=== PATIENT | male | born 1960 | race Caucasian/White ===

== ENCOUNTER 2025-04-14 23:21 | Emergency (ER) | payer MEDICARE, MEDICAID ==
[~2025-04-14] VITALS: Ht 185.4 cm; Wt 95.5 kg
[2025-04-14 23:33] VITALS: TEMP 97.9
[2025-04-15 00:44] LABS: CALCIUM, TOTAL 8.4 mg/dL (8.8-10.5); CREATININE 0.68 mg/dL (0.60-1.30); GLOMERULAR FILTR. RATE CALC > 60 mL/min (>60); GLUCOSE,RANDOM 102 mg/dL (70-110); PLATELET COUNT (AUTO) 67 K/uL (150-450); RED BLOOD CELL COUNT(AUTO) 4.26 MIL/uL (4.50-5.90); RED CELL DISTRIBUTION WIDTH 19.9 % (11.5-14.5); SODIUM SERUM 133 mmol/L (136-145); UREA NITROGEN, BLOOD 13 mg/dL (7-18); WHITE BLOOD COUNT (AUTO) 3.7 K/uL (4.5-11.0)
[2025-04-15 00:49] LABS: CREATINE KINASE, TOTAL ONLY 134 U/L (39-308)
[2025-04-15 00:55] LABS: TROPONIN I-HIGH SENSITIVITY 18 ng/L (<76)
[2025-04-15 00:56] LABS: COVID AG,FIA SOURCE NASAL SWAB
[2025-04-15 01:07] LABS: INFLUENZA TYPE A NEGATIVE FOR TYPE A (NEGATIVE); INFLUENZA TYPE B NEGATIVE FOR TYPE B (NEGATIVE); SARS-COV2 (COVID) ANTIGEN,FIA Negative (Negative)
[2025-04-15] MEDS ORDERED: SODIUM CHLORIDE 0.9% 100 ML ONE (01:36)
[2025-04-15] MEDS ORDERED: IOHEXOL 350 MG/ML 100 ML VIAL ONE (01:36)
[2025-04-15] MEDS: POTASSIUM CHLORIDE 20 MEQ ER TABLET PO ONE (01:40)
[2025-04-15 02:30] VITALS: BP 143/89; PULSE 102; RESP 19; O2SAT 96
[2025-04-15 03:01] LABS: APPEARANCE,URINE CLEAR (CLEAR); GLUCOSE, URINE (UA) NEGATIVE (NEGATIVE); LEUKOCYTE ESTERASE ,URINE NEGATIVE (NEGATIVE); NITRATE,URINE NEGATIVE (NEGATIVE); OCCULT BLOOD,URINE NEGATIVE (NEGATIVE); SPECIFIC GRAVITIY, URINE 1.041 (1.003-1.030)
[2025-04-15] MEDS ORDERED: POTA-364 PO (03:41)
== END 2025-04-15 04:00 | disposition home or self-care (01) ==
LOC: EMS 23:22
DX: E87.6 Hypokalemia (principal); I10 Essential (primary) hypertension; Z86.711 Personal history of pulmonary embolism; Z88.8 Allergy status to other drugs, medicaments and biological substances; Z20.822 Contact with and (suspected) exposure to COVID-19
CPT/HCPCS: 99285; 87426; 80048; 81003; 82550; 83880; 84484; 85025; 85379; 87040; 87804; 36415; 71275; 71045; 93005; Q9967; J7050

== ENCOUNTER → 2025-04-20 | Emergency (ER) | payer MEDICARE, MEDICAID ==
[~2025-04-20] VITALS: Ht 185.4 cm; Wt 95.5 kg
[~2025-04-20] MED LIST: POTA-364 PO
[2025-04-20 00:02] VITALS: TEMP 97.8
[2025-04-20 02:25] VITALS: BP 110/80; PULSE 86; RESP 18; O2SAT 100
== END | disposition still patient (30) ==
LOC: EMS
DX: S70.311A Abrasion, right thigh, initial encounter (principal); F10.129 Alcohol abuse with intoxication, unspecified; I10 Essential (primary) hypertension; Z79.01 Long term (current) use of anticoagulants; Z79.899 Other long term (current) drug therapy; Z88.8 Allergy status to other drugs, medicaments and biological substances; Z04.3 Encounter for examination and observation following other accident; Y90.9 Presence of alcohol in blood, level not specified; W19.XXXA Unspecified fall, initial encounter; Y93.89 Activity, other specified; Y92.89 Other specified places as the place of occurrence of the external cause; Y99.8 Other external cause status
CPT/HCPCS: 70450; 99284

== ENCOUNTER 2025-06-17 19:29 | Inpatient (IN) | payer MEDICARE, MEDICAID ==
[~2025-06-17] VITALS: Ht 185.4 cm; Wt 95.2 kg
[2025-06-17] MEDS: SODIUM CHLORIDE 0.9% 1,000 ML IV ONE (20:40)
[2025-06-17] MEDS: PANTOPRAZOLE SODIUM 40 MG/VIAL IVP ONE (20:41)
[2025-06-17 20:45] LABS: PLATELET COUNT (AUTO) 58 K/uL (150-450); RED BLOOD CELL COUNT(AUTO) 4.09 MIL/uL (4.50-5.90); RED CELL DISTRIBUTION WIDTH 18.4 % (11.5-14.5); WHITE BLOOD COUNT (AUTO) 3.9 K/uL (4.5-11.0)
[2025-06-17 20:48] LABS: CALCIUM, TOTAL 8.4 mg/dL (8.8-10.5); CREATININE 1.24 mg/dL (0.60-1.30); GLOMERULAR FILTR. RATE CALC 58 mL/min (>60); GLUCOSE,RANDOM 105 mg/dL (70-110); SODIUM SERUM 135 mmol/L (136-145); UREA NITROGEN, BLOOD 21 mg/dL (7-18)
[2025-06-17 20:52] LABS: ASPARTATE AMINOTRANSFERASE 62.0 U/L (15-37); TOTAL PROTEIN, SERUM 7.0 g/dL (6.4-8.2)
[2025-06-17 20:57] LABS: TROPONIN I-HIGH SENSITIVITY 14 ng/L (<76)
[2025-06-17] MEDS: PANTOPRAZOLE SODIUM 80 MG in SODIUM CHLORIDE 0.9% 100 ML IV SCH (21:17)
[2025-06-17] MEDS: PHYTONADIONE 5 MG in SODIUM CHLORIDE 0.9% 50 ML IV ONE (22:15)
[2025-06-17] MEDS: METOCLOPRAMIDE HCL 5 MG/ML 2 ML VIAL IVP ONE (22:24)
[2025-06-18] VITALS (9 sets, daily range): BP systolic 120–148; BP diastolic 81–100; PULSE 114–144; RESP 17–19; TEMP 98.1–99; O2SAT 98–100
[2025-06-18] MEDS ORDERED: MAGNESIUM HYDROXIDE SUSPENSION 30 ML UDCUP PO PRN (02:30)
[2025-06-18] MEDS ORDERED: 0.9% SODIUM CHLORIDE 10 ML SYRINGE IVP PRN (02:30)
[2025-06-18] MEDS ORDERED: OxyCODONE HCL/ACETAMINOPHEN 5-325 MG TABLET PO PRN (02:30)
[2025-06-18] MEDS ORDERED: ONDANSETRON HCL 4 MG/2 ML VIAL IVP PRN (02:30)
[2025-06-18] MEDS: OxyCODONE HCL/ACETAMINOPHEN 5-325 MG TABLET PO PRN (04:42)
[2025-06-18 06:22] LABS: PLATELET COUNT (AUTO) 57 K/uL (150-450); RED BLOOD CELL COUNT(AUTO) 3.69 MIL/uL (4.50-5.90); RED CELL DISTRIBUTION WIDTH 18.7 % (11.5-14.5); WHITE BLOOD COUNT (AUTO) 4.7 K/uL (4.5-11.0)
[2025-06-18 06:50] LABS: CALCIUM, TOTAL 8.4 mg/dL (8.8-10.5); CREATININE 1.26 mg/dL (0.60-1.30); GLOMERULAR FILTR. RATE CALC 57.0 mL/min (>60); GLUCOSE,RANDOM 141.0 mg/dL (70-110); SODIUM SERUM 137.0 mmol/L (136-145); UREA NITROGEN, BLOOD 35.0 mg/dL (7-18)
[2025-06-18] MEDS: PANTOPRAZOLE SODIUM 40 MG/VIAL IVP SCH (08:39)
[2025-06-18] MEDS: DOCUSATE SODIUM 100 MG CAPSULE PO SCH (09:00)
[2025-06-18] MEDS ORDERED: NALOXONE HCL 1 MG/ML 2 ML SYRINGE IVP PRN (10:45)
[2025-06-18] MEDS: 1: MAGNESIUM SULFATE 2 GM, MVI, ADULT NO.1 WITH VIT K 10 ML, THIAMINE 100 MG, FOLIC ACID IV SCH (11:43)
[2025-06-18] MEDS: PANTOPRAZOLE SODIUM 80 MG in SODIUM CHLORIDE 0.9% 100 ML IV SCH (11:44)
[2025-06-18] MEDS: LIDOCAINE 5% TRANSDERMAL PATCH TD SCH (11:44)
[2025-06-18] MEDS: HYDROCODONE/ACETAMINOPHEN 5-325 MG TABLET PO PRN (11:45)
[2025-06-18] MEDS: PANTOPRAZOLE SODIUM 40 MG/VIAL IVP ONE (11:47)
[2025-06-18] MEDS: MORPHINE SULFATE 4 MG/ML SYRINGE IVP PRN (18:59)
[2025-06-18] MEDS: -LIDODERM PATCH NOTE- MISC SCH (20:30)
[2025-06-19 00:14] VITALS: BP 136/83; PULSE 99; RESP 19; TEMP 98.2; O2SAT 99
[2025-06-19 04:07] VITALS: BP 146/91; PULSE 100; RESP 18; TEMP 97.7; O2SAT 100
[2025-06-19 06:45] LABS: CALCIUM, TOTAL 8.0 mg/dL (8.8-10.5); CREATININE 0.82 mg/dL (0.60-1.30); GLOMERULAR FILTR. RATE CALC > 60 mL/min (>60); GLUCOSE,RANDOM 96 mg/dL (70-110); SODIUM SERUM 135 mmol/L (136-145); UREA NITROGEN, BLOOD 21 mg/dL (7-18)
[2025-06-19 07:06] LABS: PLATELET COUNT (AUTO) 31 K/uL (150-450); RED BLOOD CELL COUNT(AUTO) 2.79 MIL/uL (4.50-5.90); RED CELL DISTRIBUTION WIDTH 18.5 % (11.5-14.5); WHITE BLOOD COUNT (AUTO) 2.4 K/uL (4.5-11.0)
[2025-06-19] MEDS ORDERED: EPINEPHrine 1:10,000 [1 MG/10 ML] SYRINGE ONE (08:27)
[2025-06-19] MEDS ORDERED: SODIUM TETRADECYL SULFATE 3% 60 MG/2 ML VIAL IVP ONE (08:27)
[2025-06-19] MEDS ORDERED: NALOXONE HCL 0.4 MG/ML VIAL ONE (08:27)
[2025-06-19] MEDS ORDERED: FLUMAZENIL 0.1 MG/ML 5 ML VIAL IVP ONE (08:27)
[2025-06-19] MEDS ORDERED: SODIUM CHLORIDE 0.9% 1,000 ML ONE (08:27)
[2025-06-19] MEDS ORDERED: ATROPINE SULFATE 0.1 MG/ML 10 ML SYRINGE IVP ONE (08:27)
[2025-06-19 08:47] VITALS: BP 132/92; PULSE 90; RESP 18; TEMP 97.9; O2SAT 99
[2025-06-19] MEDS ORDERED: LIDOCAINE/PF 2% 5 ML VIAL ONE (12:00)
[2025-06-19] MEDS ORDERED: DEXAMETHASONE SOD PHOS 4 MG/ML VIAL ONE (12:00)
[2025-06-19] MEDS ORDERED: PROPOFOL 1% 20 ML VIAL IVP ONE (12:00)
[2025-06-19 12:44] VITALS: BP 155/89; PULSE 94; RESP 19; TEMP 98.2; O2SAT 100
[2025-06-19] MEDS: ACETAMINOPHEN 325 MG TABLET PO PRN (13:42)
[2025-06-19] MEDS: CefTRIAXone SODIUM 250 MG in DEXTROSE 5%-WATER 50 ML IV ONE (14:14)
[2025-06-19 16:20] VITALS: BP 131/99; PULSE 95; RESP 18; TEMP 98.2; O2SAT 97
[2025-06-19 20:25] VITALS: BP 134/85; PULSE 118; RESP 18; TEMP 98.4; O2SAT 99
[2025-06-19 23:06] LABS: HEPATITIS C AB (EIA) Non Reactive (Non Reactive)
[2025-06-20] VITALS (8 sets, daily range): BP systolic 124–151; BP diastolic 77–99; PULSE 93–109; RESP 17–18; TEMP 97.5–98.4; O2SAT 96–100
[2025-06-20 06:56] LABS: PLATELET COUNT (AUTO) 36 K/uL (150-450); RED BLOOD CELL COUNT(AUTO) 2.59 MIL/uL (4.50-5.90); RED CELL DISTRIBUTION WIDTH 18.6 % (11.5-14.5); WHITE BLOOD COUNT (AUTO) 2.6 K/uL (4.5-11.0)
[2025-06-20 07:29] LABS: CALCIUM, TOTAL 7.8 mg/dL (8.8-10.5); CREATININE 0.88 mg/dL (0.60-1.30); GLOMERULAR FILTR. RATE CALC > 60 mL/min (>60); GLUCOSE,RANDOM 94 mg/dL (70-110); SODIUM SERUM 136 mmol/L (136-145); UREA NITROGEN, BLOOD 11 mg/dL (7-18)
[2025-06-20] MEDS: PROPRANOLOL HCL 10 MG TABLET PO SCH (23:18)
[2025-06-21 01:35] VITALS: BP 163/111; PULSE 93; RESP 17; TEMP 98.4; O2SAT 99
[2025-06-21 04:35] VITALS: BP 148/89; PULSE 85; RESP 18; TEMP 98.2; O2SAT 100
[2025-06-21 06:51] LABS: PLATELET COUNT (AUTO) 49 K/uL (150-450); RED BLOOD CELL COUNT(AUTO) 2.80 MIL/uL (4.50-5.90); RED CELL DISTRIBUTION WIDTH 18.0 % (11.5-14.5); WHITE BLOOD COUNT (AUTO) 3.0 K/uL (4.5-11.0)
[2025-06-21 07:02] LABS: CALCIUM, TOTAL 8.1 mg/dL (8.8-10.5); CREATININE 0.86 mg/dL (0.60-1.30); GLOMERULAR FILTR. RATE CALC > 60 mL/min (>60); GLUCOSE,RANDOM 98 mg/dL (70-110); SODIUM SERUM 135 mmol/L (136-145); UREA NITROGEN, BLOOD 8 mg/dL (7-18)
[2025-06-21 07:05] LABS: ASPARTATE AMINOTRANSFERASE 44.0 U/L (15-37); TOTAL PROTEIN, SERUM 6.2 g/dL (6.4-8.2)
[2025-06-21 08:30] VITALS: BP 128/89; PULSE 93; RESP 18; TEMP 97.9; O2SAT 100
[2025-06-21] MEDS ORDERED: IOHEXOL 350 MG/ML 100 ML VIAL ONE (11:11)
[2025-06-21 12:01] VITALS: BP 116/76; PULSE 88; RESP 18; TEMP 98.2; O2SAT 99
[2025-06-21 16:21] VITALS: BP 145/94; PULSE 88; RESP 19; TEMP 98; O2SAT 100
[2025-06-21 21:08] VITALS: BP 148/93; PULSE 104; RESP 18; TEMP 98.2; O2SAT 98
[2025-06-21] MEDS ORDERED: POTASSIUM CHL 10 MEQ/WATER 50 ML IV PRN (21:30)
[2025-06-21] MEDS: POTASSIUM CHLORIDE 20 MEQ ER TABLET PO PRN (21:31)
[2025-06-22 00:28] VITALS: BP 118/92; PULSE 103; RESP 18; TEMP 97.7; O2SAT 99
[2025-06-22] MEDS: PANTOPRAZOLE SODIUM 40 MG/VIAL IVP SCH (00:33)
[2025-06-22 04:43] VITALS: BP 128/78; PULSE 95; RESP 18; TEMP 98.4; O2SAT 98
[2025-06-22 07:55] LABS: PLATELET COUNT (AUTO) 61 K/uL (150-450); RED BLOOD CELL COUNT(AUTO) 2.54 MIL/uL (4.50-5.90); RED CELL DISTRIBUTION WIDTH 18.2 % (11.5-14.5); WHITE BLOOD COUNT (AUTO) 2.5 K/uL (4.5-11.0)
[2025-06-22 08:03] LABS: RBC MORPHOLOGY COMMENT ABNORMAL RBC MORPH
[2025-06-22 08:04] LABS: CALCIUM, TOTAL 8.2 mg/dL (8.8-10.5); CREATININE 0.70 mg/dL (0.60-1.30); GLOMERULAR FILTR. RATE CALC > 60 mL/min (>60); GLUCOSE,RANDOM 89 mg/dL (70-110); SODIUM SERUM 136 mmol/L (136-145); UREA NITROGEN, BLOOD 6 mg/dL (7-18)
[2025-06-22 11:52] VITALS: BP 138/88; PULSE 89; RESP 18; TEMP 98.2; O2SAT 98
[2025-06-22 13:06] VITALS: BP_SYST 131; BP_SYST 138; BP_SYST 163; BP_DIAS 91; BP_DIAS 95; BP_DIAS 96; PULSE 92
[2025-06-22 15:35] VITALS: BP 122/75; PULSE 93; RESP 18; TEMP 98.4; O2SAT 99
[2025-06-22 20:06] VITALS: BP 145/90; PULSE 94; RESP 18; TEMP 98.8; O2SAT 98
[2025-06-23 00:19] VITALS: BP 133/75; PULSE 79; RESP 17; TEMP 98.4; O2SAT 98
[2025-06-23] MEDS: HYDROCODONE/ACETAMINOPHEN 10-325 MG TABLET PO PRN (00:28)
[2025-06-23 04:48] VITALS: BP 133/79; PULSE 76; RESP 18; TEMP 98.1; O2SAT 97
[2025-06-23 08:09] VITALS: BP 138/82; PULSE 85; RESP 17; TEMP 97.7; O2SAT 98
[2025-06-23 08:19] LABS: PLATELET COUNT (AUTO) 67 K/uL (150-450); RED BLOOD CELL COUNT(AUTO) 2.59 MIL/uL (4.50-5.90); RED CELL DISTRIBUTION WIDTH 18.3 % (11.5-14.5); WHITE BLOOD COUNT (AUTO) 3.1 K/uL (4.5-11.0)
[2025-06-23 08:31] LABS: CALCIUM, TOTAL 8.0 mg/dL (8.8-10.5); CREATININE 0.74 mg/dL (0.60-1.30); GLOMERULAR FILTR. RATE CALC > 60 mL/min (>60); GLUCOSE,RANDOM 87 mg/dL (70-110); SODIUM SERUM 134 mmol/L (136-145); UREA NITROGEN, BLOOD 7 mg/dL (7-18)
[2025-06-23] MEDS ORDERED: PROP10TA72 PO (10:03)
[2025-06-23] MEDS ORDERED: HYDR2TAB37 PO (10:03)
[2025-06-23] MEDS ORDERED: LIDO700A30 TD (10:03)
[2025-06-23] MEDS ORDERED: PANT-31 PO (10:03)
[2025-06-23] MEDS ORDERED: FERR324T23 PO (10:07)
[2025-06-23 11:46] VITALS: BP 122/78; PULSE 87; RESP 17; TEMP 98.1; O2SAT 98
== END 2025-06-23 16:25 | disposition home health service (06) | DRG 377 ==
LOC: EMS 19:30 → EDH 06-18 01:15 → 5S 06-18 02:35
PROVIDERS: ADMIT Internal Medicine; ATTEND Internal Medicine
PROC: 0W3P8ZZ Control Bleeding in Gastrointestinal Tract, Via Natural or Artificial Opening Endoscopic (ICD-10-PCS; 2025-06-19)
PROC: 0DB68ZX Excision of Stomach, Via Natural or Artificial Opening Endoscopic, Diagnostic (ICD-10-PCS; principal; 2025-06-19 09:00)
DX: K25.4 Chronic or unspecified gastric ulcer with hemorrhage (principal); E43 Unspecified severe protein-calorie malnutrition; D69.6 Thrombocytopenia, unspecified; D68.2 Hereditary deficiency of other clotting factors; T45.515A Adverse effect of anticoagulants, initial encounter; Z79.01 Long term (current) use of anticoagulants; K76.6 Portal hypertension; F10.129 Alcohol abuse with intoxication, unspecified; I12.9 Hypertensive chronic kidney disease with stage 1 through stage 4 chronic kidney disease, or unspecified chronic kidney disease; N18.30 Chronic kidney disease, stage 3 unspecified; D62 Acute posthemorrhagic anemia; K20.90 Esophagitis, unspecified without bleeding; K29.80 Duodenitis without bleeding; K31.89 Other diseases of stomach and duodenum; E87.6 Hypokalemia; Y90.6 Blood alcohol level of 120-199 mg/100 ml; K44.9 Diaphragmatic hernia without obstruction or gangrene; Z88.8 Allergy status to other drugs, medicaments and biological substances; Z86.711 Personal history of pulmonary embolism; Y92.89 Other specified places as the place of occurrence of the external cause; Z68.27 Body mass index [BMI] 27.0-27.9, adult
CPT/HCPCS: 71045; 71275; 80048; 80076; 83690; 83735; 83880; 84484; 85014; 85018; 85025; 85610; 85730; 86803; 86850; 86900; 86901; 87081; 87340; 88305; 93005; 96361; 96365; 96366; 96375; 97110; 97116; 97162; 97165; 97530; 99291; G0378; G0480; J0169; J0461; J0696; J1100; J1171; J1200; J2270; J2312; J2470; J2704; J2765; J3411; J3430; J3475; J3490; J7030; J7050; J7060; 36415-L1; 36415-TC